=== PATIENT | male | born 1960 | race Caucasian/White ===

== ENCOUNTER → 2016-10-15 | Outpatient (CLI) | payer BC ==
[~2016-10-15] MED LIST: FENO145T2 PO; GBPN100C PO; HYDR-3702 PO; LSNP20T PO; METF1000 PO; METH4TAB27 PO; METO25TA60 PO; OMEP20TA PO
--- NOTE | 2016-10-15 13:51 | Diagnostic Imaging Report ---
PROCEDURE: MRI lumbar spine with and without contrast. TECHNIQUE: A multiplanar/multisequence MRI of the lumbar spine was performed with and without contrast. INDICATION: Left-sided sciatica. COMPARISON: 09/27/2016. FINDINGS: Following IV contrast administration, there is no abnormal enhancement. L4-L5 posterior left lateral disc herniation is confirmed displacing the exiting left L4 nerve root. Moderate to severe left L4-L5 foraminal stenosis is noted. The right neural foramen at this level is moderately narrowed, unchanged. There is moderate bi-foraminal narrowing at L3-L4, mild to moderate bi-foraminal narrowing at L2-L3, and mild L5-S1 bi-foraminal narrowing, unchanged. Moderate canal stenoses at the L2-L3, L3-L4, and L4-L5 disc space levels are unchanged. No paravertebral mass, hemorrhage, or fluid collection. IMPRESSION: No change from the recent nonenhanced exam. The post contrast enhanced images reveal no evidence of mass or abnormal epidural enhancement. No fracture. Far lateral L4-L5 disc herniation is confirmed contributing to the severe left L4-L5 foraminal stenoses. Additional canal and foraminal stenoses are listed level by level above, unchanged. No acute bony abnormality or malalignment. Dictated by: Dictated on workstation # [id number]
== END ==
LOC: RAD 11:35
PROVIDERS: ATTEND Family Medicine
DX: Z01.812 Encounter for preprocedural laboratory examination (principal); M54.32 Sciatica, left side
CPT/HCPCS: 36415; 72158; 82565; 84520; A9579

== ENCOUNTER → 2016-10-30 | Outpatient (CLI) | payer BC ==
[2016-10-30 11:15] LABS: BASOPHILS % (AUTO) 0 % (0-2); EOSINOPHILS # (AUTO) 0.1 10^3uL; EOSINOPHILS % (AUTO) 1 % (0-4); LYMPHOCYTES # (AUTO) 1.6 X10^3; MEAN CORPUSCULAR HEMOGLOBIN 29.2 PG (26.0-34.0); MEAN CORPUSCULAR HGB CONC 34.4 g/dL (31.0-37.0); MEAN CORPUSCULAR VOLUME 85 FL (80-100); MONOCYTES # (AUTO) 0.6 X10^3; MONOCYTES % (AUTO) 7 % (3-11); NEUTROPHILS # (AUTO) 5.5 X10^3; NEUTROPHILS % (AUTO) 70 % (51-67); PLATELET COUNT 194 10^3uL (150-450); WHITE BLOOD COUNT 7.93 10^3uL (4.0-11.0)
[2016-10-30 11:18] LABS: BILIRUBIN,URINE Negative (Negative); CLARITY,URINE Clear; COLOR,URINE Yellow; GLUCOSE, URINE (UA) 2+ (Negative); LEUKOCYTE ESTERASE ,URINE Negative (Negative); PH,URINE 5.5 (5.0 - 8.0); UROBILINOGEN,URINE 0.2 mg/dL (0.2-1.0)
[2016-10-30 11:25] LABS: ANION GAP 18.3 MEQ/L (3-15)
== END ==
LOC: RAD 11:01
PROVIDERS: ATTEND Family Medicine
DX: Z01.818 Encounter for other preprocedural examination (principal); E11.9 Type 2 diabetes mellitus without complications
CPT/HCPCS: 36415; 71020; 80048; 81003; 83036; 85025; 85610; 85730